=== PATIENT | female | born 1945 | race Caucasian/White ===

== ENCOUNTER 2017-01-12 10:41 | Emergency (ER) | payer MEDICARE, OTHER ==
[~2017-01-12] VITALS: Ht 165.1 cm; Wt 77.1 kg
--- NOTE | ~2017-01-12 | CR72 ---
[facility] A Service of [facility] RADIOLOGY TEXT RESULTS PATIENT: DEENA GONZALEZ LOCATION: [facility] : 49 UNIT #: [id number] AGE: [address]: Rashid Schaffer MD SEX: F ORDER DR: [id number] [facility] [address] [place], [place] [address] [id number] E MR#: [id number] #: [id number] NAME: DEENA GONZALEZ : 1945 SEX: F STUDY DATE/TIME: 01/12/2017 11:24 UNIT: [facility] ROOM: STUDY DESCRIPTION: CR Chest Single View Portable Attending Physician: Rashid Schaffer M.D. Ordering Physician: Rashid Schaffer M.D. Primary Care Physician: Hossein Rod Jr., A.P.R.N. MEDICAL IMAGING REPORT This report is preliminary unless electronic signature is present EXAM Portable chest x-ray, 01/12/2017. HISTORY Irregular heartbeat, chest pain of 2 weeks duration. CHF, diabetes. TECHNIQUE AP radiograph of the chest is presented. COMPARISON No comparisons. FINDINGS The bony structures are unremarkable. The heart is [id number] limits of normal in size given low lung volumes and AP technique. Low lung volumes. Some mild central bronchovascular crowding. Patchy and linear densities at the left lung base probably atelectatic in nature. Components of mild basilar pneumonitis not excluded. No dense airspace disease, pleural effusion, pneumothorax or suspicious nodule. Dictated by... Jason Roa M.D. THIS IS AN ELECTRONICALLY VERIFIED REPORT Jason Roa M.D. at 01/13/2017 9:43 PM CHRISS/josé antonio TD: 01/12/2017 16:27 JOB #: [id number] MEDICAL IMAGING REPORT [facility] A Service of [facility] RADIOLOGY TEXT RESULTS PATIENT: DEENA GONZALEZ LOCATION: [facility] : 49 UNIT #: [id number] AGE: [address]: Rashid Schaffer MD SEX: F ORDER DR: Page 1 of 1 COPY
--- NOTE | ~2017-01-12 | EKG ---
PATIENT: DEENA GONZALEZ UNIT #: [id number] Ventricular Rate: 65 BPM Atrial Rate: 65 BPM P-R Interval: 170 ms QRS Duration: 90 ms Q-T Interval: 380 ms QTC Calculation(Bezet): 395 ms P Dyess: 38 degrees Calculated R Dyess: -9 degrees Calculated T Dyess: 95 degrees Diagnosis Line: Sinus rhythm with Premature atrial complexes Diagnosis Line: Left ventricular hypertrophy with repolarization Diagnosis Line: abnormality Diagnosis Line: Abnormal ECG Diagnosis Line: No previous ECGs available Diagnosis Line: Confirmed by CECILIA JANE MD ([id number]) on 01/12/2017 Diagnosis Line: 5:02:10 PM INTERPRETING MD: BUCK PABLO
[~2017-01-12 10:41] MED LIST: AMITRIPTYLINE H25 MG PO; BACLOFEN10 MG PO; COREG6.25 MG PO; GLUCOPHAGE500 M1 PO; HYDROCODONE/APA1 T16; LEVOXYL125 MC1 PO; NEXIUM PO; SIMVASTATIN20 MG PO; TOPAMAX25 MG DOB
[2017-01-12 11:57] LABS: BASOPHIL# 0.1 X10e3 (0-0.3); BASOPHIL% 1.4 % (0-2.5); EOSINOPHIL# 0.1 X10e3 (0-0.7); EOSINOPHIL% 2.4 % (0.0-7.0); HEMATOCRIT 40.8 % (35.0-45.0); HEMOGLOBIN 13.9 gm/dL (12.0-16.0); LYMPHOCYTE# 1.6 X10e3 (1.0-3.5); LYMPHOCYTE% 33.6 % (17.0-45.0); MEAN CELL VOLUME 92.1 FL (83-96); MEAN CORPUSCULAR HEMOGLOBIN 31.3 PG (28-34); MEAN PLATELET VOLUME 8.3 FL (6.5-11.5); MONOCYTE# 0.5 X10e3 (0-1.0); MONOCYTE% 9.9 % (3.0-12.0); NEUTROPHIL# 2.5 X10e3 (1.5-7.1); NEUTROPHIL% 52.7 % (40-75); PLATELET COUNT 223 X10e3 (140-420); RED BLOOD COUNT 4.43 X10e (3.90-5.30); RED CELL DISTRIBUTION WIDTH 13.7 % (11.0-15.5); WHITE BLOOD COUNT 4.8 X10e3 (4.0-10.5)
[2017-01-12 11:59] LABS: DIFF IND NO
[2017-01-12 12:09] LABS: PARTIAL THROMBOPLASTIN TIME 25.9 SECONDS (23.5-31.3); PROTHROMBIN TIME (PATIENT) 11.3 SECONDS (10.0-11.7)
[2017-01-12 12:25] LABS: ALBUMIN SERUM 4.2 g/dL (3.5-5.0); BILIRUBIN, DIRECT 0.1 mg/dL (0.0-0.2); BILIRUBIN,INDIRECT 0.6 mg/dL (0.0-0.9); BILIRUBIN,TOTAL 0.7 mg/dL (0.2-2.0); CALCIUM SERUM 9.3 mg/dL (8.4-10.2); GLOM FILT RATE Estimated 57.5 mL/min (>60); POTASSIUM 3.5 mmol/L (3.5-5.1); PROTEIN TOTAL SERUM 7.3 g/dL (6.0-8.3)
[2017-01-12 12:37] LABS: POC - CKMB <1.0 ng/mL (0.0-7.9); POC - TROPONIN <0.05 ng/mL (<=0.05)
[2017-01-12 12:57] LABS: POC - CKMB <1.0 ng/mL (0.0-7.9); POC - TROPONIN <0.05 ng/mL (<=0.05)
== END 2017-01-12 14:22 | disposition home or self-care (01) ==
LOC: CED 10:41
PROVIDERS: Emergency Medicine
DX: R07.89 Other chest pain (principal); I50.9 Heart failure, unspecified; E11.9 Type 2 diabetes mellitus without complications; Z79.899 Other long term (current) drug therapy; Z88.0 Allergy status to penicillin
CPT/HCPCS: 36415; 71010; 80048; 80076; 82553; 84484; 85025; 85610; 85730; 93005; 99285